=== PATIENT | male | born 1985 | race African-American/Black ===

== ENCOUNTER 2024-05-21 09:47 | Emergency (ER) | payer SELFPAY ==
[2024-05-21] MEDS ORDERED: Fluorescein Opthalmic Strip ONE (10:15)
[2024-05-21] MEDS ORDERED: Tetracaine 0.5% PF 4 ML BOT ONE (10:15)
== END 2024-05-21 15:43 | disposition home or self-care (01) ==
LOC: NAV ERS 09:47
DX: R51.9 Headache, unspecified (principal); H40.9 Unspecified glaucoma; H54.8 Legal blindness, as defined in USA; F17.210 Nicotine dependence, cigarettes, uncomplicated
CPT/HCPCS: 99283